=== PATIENT | male | born 1950 | race Caucasian/White ===

== ENCOUNTER → 2022-12-16 09:37 | Outpatient (BNVA) | payer OTHER, SELFPAY | PROVIDERS: Visit Provider Podiatrist Foot & Ankle Surgery | DX: B35.1 Tinea unguium (principal); L60.3 Nail dystrophy | CPT/HCPCS: 73630; 99203 ==

== ENCOUNTER → 2023-01-13 09:52 | Outpatient (BNVA) | payer OTHER, SELFPAY | PROVIDERS: Visit Provider Podiatrist Foot & Ankle Surgery | DX: B35.1 Tinea unguium (principal); L60.3 Nail dystrophy | CPT/HCPCS: 36415; 80053; 99213 ==

== ENCOUNTER → 2023-02-17 09:27 | Outpatient (BNVA) | payer OTHER, SELFPAY | PROVIDERS: Visit Provider Podiatrist Foot & Ankle Surgery | DX: B35.1 Tinea unguium (principal); L60.3 Nail dystrophy | CPT/HCPCS: 80053; 99213 ==

== ENCOUNTER 2023-12-14 09:14 | Emergency (ER) | payer OTHER, SELFPAY ==
[2023-12-14 10:11] VITALS: BP 136/88; PULSE 71; RESP 18; TEMP 36.7; O2SAT 95; BMI 22.9
[2023-12-14 10:24] LABS: Basophils % 0.9 %; Eosinophils # 0.1 10^3/uL (0.0-0.8); Eosinophils % 1.6 %; Hematocrit 47.1 % (37-53); Lymphocytes # 1.1 10^3/uL (0.8-4.8); Lymphocytes % 33.3 %; Mean Corpuscular HGB Conc 33.3 g/dL (30-55); Mean Corpuscular Hemoglobin 31.2 pg (27-33); Mean Corpuscular Volume 93.6 fl (82-101); Mean Platelet Volume 10.1 fL (7.4-10.4); Monocytes # 0.5 10^3/uL (0.2-0.9); Neutrophils # 1.61 10^3/uL (1.8-7.7); Neutrophils % 50.2 %; Nucleated Red Blood Cells % 0 %; Platelet Count 172 10^3/cmm (157-399); Red Blood Count 5.03 10^6/uL (3.85-5.65); Red Cell Distribution Width 13.1 % (12.1-15.1); White Blood Count 3.21 10^3/uL (3.29-11.43)
[2023-12-14 10:50] LABS: Alanine Aminotransferase 42 U/L (0-41); Albumin Level 3.9 g/dL (3.5-5.2); Alkaline Phosphatase 105 U/L (40-130); Anion Gap 17.9 (5-19); Aspartate Amino Transferase 40 U/L (0-40); Blood Urea Nitrogen 13 mg/dL (8-23); Calcium 8.6 mg/dL (8.5-10.5); Carbon Dioxide 20 mmol/L (22-29); Chloride 105 mmol/L (98-107); Creatinine Clr Calc Pharmacy 63.4504; Globulin 3.2 g/dL (1.3-4.6); Glucose 141 mg/dL (65-115); Lipase 21 U/L (13-60); Osmolality Calculated 290 mOsm/kg (285-295); Potassium 3.9 mmol/L (3.5-5.1); Sodium 139 mmol/L (136-145); Total Bilirubin 0.3 mg/dL (0.15-1.2); Total Protein 7.1 g/dL (6.6-8.7)
[2023-12-14 13:15] VITALS: BP 134/88; PULSE 68; O2SAT 98
--- NOTE | 2023-12-14 14:20 | ED_ITS ---
HPI - Back Pain/Injury 2 General: Chief Complaint: Back Pain/Injury Stated Complaint: low back pain/abd pain Time Seen by Provider: 12/14/23 11:19 Source: patient Mode of arrival: ambulatory Limitations: no limitations History of Present Illness: Patient is a nice 73-year-old male who presents to ED today with a complaint of left-sided back pain starting approximately a week ago. No known injury or trauma. He states when symptoms first started it felt like a burning soreness deep inside. He states pain is now radiating around into the front. He states pain does not seem to interfere with his daily activities but it becomes worse at night keeping him up from sleep. He states he has seen [facility] who told him it could be a kidney/ureter stone and also stated a possibility of shingles. He was not started on any medications. Patient states he has a history of kidney stones and knows what that feels like and states his pain is completely different. He has started to notice a rash to the back. MD elicited complaint: back pain Onset (ago): day(s) Timing: constant Severity: moderate Similar Symptoms Previously: No Quality: burning and tingling Location: left lower back Radiation: abdomen Exacerbating factors: none Relieving factors: none Associated symptoms: Reports other (skin lesions); Deny abdominal pain, chills, difficulty walking, dysuria, fatigue, fever(s), nausea, urinary urgency or vomiting Treatments prior to arrival: NSAIDS and acetaminophen Work related injury: No Review of Systems 2 Const: Denies: fever(s), chills, body aches, fatigue or malaise Card: Denies: chest pain Resp: Denies: dyspnea GI: Denies: abdominal pain, nausea, vomiting or diarrhea : Denies: flank pain, difficulty urinating, dysuria, urinary frequency or urinary urgency Musc: Reports: back pain; Denies: neck pain, extremity pain, extremity swelling, joint pain or joint swelling Skin/Breast: Reports: rash; Denies: pruritus Neuro: Denies: headache(s), numbness in extremities, weakness in extremities, sensory changes, difficulty walking or dizziness Physical Exam 2 Const: COMMON NORMALS: no acute distress, average body habitus, patient oriented x3, no limitations, healthy appearing, alert and well nourished Resp: COMMON NORMALS: normal respiratory effort and clear to auscultation bilaterally AUSCULTATION: clear to auscultation bilaterally Cardio: COMMON NORMALS: regular rate and regular rhythm RATE: regular rate RHYTHM: regular rhythm GI: COMMON NORMALS: Normal to inspection, nondistended, normoactive bowel sounds present, Soft to palpation, non-tender, No hepatosplenomegaly present and no masses PALPATION: Yes Soft to palpation and Yes No hepatosplenomegaly present : COMMON NORMALS: Yes no CVA tenderness BLADDER/KIDNEY EXAM: Yes no CVA tenderness Back/Pelvis: COMMON NORMALS: no CVA tenderness, thoracic and lumbar spine normal to inspection, no thoracic nor lumbar tenderness, thoraco-lumbar ROM normal and straight leg raise negative bilaterally BACK IMAGE (MALE): 1. cluster of erythematous lesions/vesicles that do not cross midline consistent with herpes zoster Extremity: COMMON NORMALS: normal to inspection, full ROM and capillary refill normal GENERAL: Yes normal exam except as noted Neuro: COMMON NORMALS: patient oriented x3, moves all extremities, no focal motor deficits, no sensory deficits noted and gait normal S ENSORIUM/ORIENTATION: Yes alert Skin: RASHES: rashes noted (see above) Course 2 Vital Signs: Vital signs: Vital Signs Temperature 98.0 F 12/14/23 10:11 Pulse Rate 68 12/14/23 13:15 Respiratory Rate 18 12/14/23 10:11 Blood Pressure 134/88 12/14/23 13:15 Pulse Oximetry 98 12/14/23 13:15 Oxygen Delivery Me thod Room Air 12/14/23 13:15 MDM - Back Pain/Injury Medical Decision Making Patient's history and physical examination consistent with a herpes zoster. He will be placed on steroids and antivirals and given pain medication as pain seems to be his most bothersome complaint keeping him up from sleep. Recommend follow-up with primary care provider later this week/early next week for reevaluation. Return ED precautions given. Medical Records I reviewed the patient's medical records. Labs I reviewed the patient's lab results. 12/14/23 09:57 12/14/23 09:57 Laboratory Results WBC 3.21 10^3/uL (3.29-11.43) L 12/14/23 09:57 RBC 5.03 10^6/uL (3.85-5.65) 12/14/23 09:57 Hgb 15.70 g/dL (11.27-16.99) 12/14/23 09:57 Hct 47.1 % (37-53) 12/14/23 09:57 MCV 93.6 fl (82-101) 12/14/23 09:57 MCH 31.2 pg (27-33) 12/14/23 09:57 MCHC 33.3 g/dL (30-55) 12/14/23 09:57 RDW 13.1 % (12.1-15.1) 12/14/23 09:57 Plt Count 172 10^3/cmm (157-399) 12/14/23 09:57 MPV 10.1 fL (7.4-10.4) 12/14/23 09:57 Neut % (Auto) 50.2 % 12/14/23 09:57 Lymph % (Auto) 33.3 % 12/14/23 09:57 [place] % (Auto) 14.0 % 12/14/23 09:57 Eos % (Auto) 1.6 % 12/14/23 09:57 Baso % (Auto) 0.9 % 12/14/23 09:57 Neut # (Auto) 1.61 10^3/uL (1.8-7.7) L 12/14/23 09:57 Lymph # (Auto) 1.1 10^3/uL (0.8-4.8) 12/14/23 09:57 [place] # (Auto) 0.5 10^3/uL (0.2-0.9) 12/14/23 09:57 Eos # (Auto) 0.1 10^3/uL (0.0-0.8) 12/14/23 09:57 Baso # (Auto) 0.0 10^3/uL (0.0-0.1) 12/14/23 09:57 Nucleated RBC % (auto) 0 % 12/14/23 09:57 Nucleated RBCs # 0.0 /100WBC 12/14/23 09:57 Sodium 139 mmol/L (136-145) 12/14/23 09:57 Potassium 3.9 mmol/L (3.5-5.1) 12/14/23 09:57 Chloride 105 mmol/L (98-107) 12/14/23 09:57 Carbon Dioxide 20 mmol/L (22-29) L 12/14/23 09:57 Anion Gap 17.9 (5-19) 12/14/23 09:57 BUN 13 mg/dL (8-23) 12/14/23 09:57 Creatinine 1.1 mg/dL (0.7-1.2) 12/14/23 09:57 GFR Calculation Not Reportable 12/14/23 09:57 Glucose 141 mg/dL (65-115) H 12/14/23 09:57 Calculated Osmolality 290 mOsm/kg (285-295) 12/14/23 09:57 Calcium 8.6 mg/dL (8.5-10.5) 12/14/23 09:57 Total Bilirubin 0.3 mg/dL (0.15-1.2) 12/14/23 09:57 AST 40 U/L (0-40) 12/14/23 09:57 ALT 42 U/L (0-41) H 12/14/23 09:57 Alkaline Phosphatase 105 U/L (40-130) 12/14/23 09:57 Total Protein 7.1 g/dL (6.6-8.7) 12/14/23 09:57 Albumin 3.9 g/dL (3.5-5.2) 12/14/23 09:57 Globulin 3.2 g/dL (1.3-4.6) 12/14/23 09:57 Lipase 21 U/L (13-60) 12/14/23 09:57 Urine Color Yellow (Yellow) 12/14/23 14:20 Urine Appearance Clear (CLEAR) 12/14/23 14:20 Urine pH 5 (5-7) 12/14/23 14:20 Ur Specific [place] 1.025 (1.005-1.030) 12/14/23 14:20 Urine Protein Neg (Negative) 12/14/23 14:20 Urine Glucose (UA) Norm (Normal) 12/14/23 14:20 Urine Ketones Negative (Negative) 12/14/23 14:20 Urine Blood Neg (Negative) 12/14/23 14:20 Urine Nitrate Negative (Negative) 12/14/23 14:20 Urine Bilirubin Neg (Negative) 12/14/23 14:20 Urine Urobilinogen Norm mg/dL (Negative) 12/14/23 14:20 Ur Leukocyte Esterase Negative (Negative) 12/14/23 14:20 No radiology studies performed this visit Discharge Plan Discharge Patient Disposition: Home Clinical Impression: Shingles Condition: Stable Prescriptions: New valacyclovir 1 gram tablet 1,000 mg PO Q8H 7 Days Qty: 21 0RF prednisone 10 mg tablet 10 mg PO DAILY 7 Days Qty: 27 0RF Rx Instructions: 6 tabs on days 1-2, 5 tabs on days 3, 4 tabs on day 4, 3 tabs on day 5, 2 tabs on day 6, 1 tab on day 7 hydrocodone-acetaminophen 5-325 mg tablet 1 tab PO .q4-6 PRN (Reason: pain) Qty: 14 0RF No Action atorvastatin 40 mg Tablet 40 mg PO QPM famotidine 20 mg Tablet 20 mg PO QPM Discharge Orders: Discharge ED (Routine); Ordered 12/14/23 Ordered By: Teresa Castañeda Patient Instructions: [place] (ED), Shingles Coding Level of Care Code ED Application Support Intern for Annel Goel
[2023-12-14 14:30] LABS: Add Urine Microscopic? NO; Bilirubin Urine Neg (Negative); Blood Urine Neg (Negative); Glucose Urine UA Norm (Normal); Ketones Urine Negative (Negative); Leukocyte Esterase Urine Negative (Negative); Nitrate Urine Negative (Negative); Protein Urine Neg (Negative); Specific Gravity, Urine 1.025 (1.005-1.030); Urine Appearance Clear (CLEAR); Urine Color Yellow (Yellow); Urobilinogen Urine Norm (Negative); pH Urine 5 (5-7)
[2023-12-14 14:32] LABS: Charge for UA Resulting for Rev
== END 2023-12-14 14:59 | disposition home or self-care (01) ==
PROVIDERS: Emergency Provider Physician Assistant
DX: B02.9 Zoster without complications (principal)
CPT/HCPCS: 36415; 80053; 81003; 83690; 85025; 99283